=== PATIENT | male | born 1955 | race Two or more races ===

== ENCOUNTER 2022-01-12 05:30 | Day surgery (SDC) | payer OTHER | END 2022-01-12 13:20 | disposition home or self-care (01) | LOC: CIR.AMB 05:30 | PROVIDERS: ATTEND Otolaryngology Otology & Neurotology | DX: H90.12 Conductive hearing loss, unilateral, left ear, with unrestricted hearing on the contralateral side (principal); H74.12 Adhesive left middle ear disease; D68.9 Coagulation defect, unspecified; Z20.822 Contact with and (suspected) exposure to COVID-19; K21.9 Gastro-esophageal reflux disease without esophagitis; K29.70 Gastritis, unspecified, without bleeding ==